=== PATIENT | male | born 1955 | race Caucasian/White ===

== ENCOUNTER → 2016-08-19 | Outpatient (CLI) | payer OTHER ==
[~2016-08-19] MED LIST: COZAAR 25 MG TA25 MG PO; DOXYCYCLINE 10100 MG PO; LEVOTHYROXINE 0.15MG PO
== END ==
LOC: CAT 08-12 07:04
DX: J32.4 Chronic pansinusitis (principal)

== ENCOUNTER 2017-09-04 10:49 | Emergency (ER) | payer OTHER ==
[~2017-09-04] VITALS: Ht 167.6 cm; Wt 61.2 kg
[~2017-09-04 10:49] MED LIST changes: +COZAAR 50 MG TA50 M2 PO; +DOXYCYCLINE MO100 MG PO; +LEVOTHYROXINE0.05 MG PO; +TRAMADOL 50 MG50 MG PO
[2017-09-04 10:58] VITALS: BP 168/83
[2017-09-04] MEDS ORDERED: NORCO 5-325 TA1 EACH PO (11:07)
[2018-03-21] MEDS ORDERED: IBUPROFEN 200200 M1 PO (14:58)
[2018-03-21] MEDS ORDERED: LOSARTAN-HCTZ1 EAC1 PO (14:59)
[2018-03-21] MEDS ORDERED: HYDROCODON-ACE1 EAC7 PO (15:23)
[2018-03-21] MEDS ORDERED: NABUMETONE 500500 M1 PO (15:23)
[2018-03-24] MEDS ORDERED: MEDROLDOSEPACK PO (09:09)
[2018-04-14] MEDS ORDERED: COZAAR100 MG PO (13:38)
== END 2017-09-04 12:20 | disposition home or self-care (01) ==
LOC: ER 10:49
DX: S29.012A Strain of muscle and tendon of back wall of thorax, initial encounter (principal); M94.0 Chondrocostal junction syndrome [Tietze]; E11.9 Type 2 diabetes mellitus without complications; I10 Essential (primary) hypertension; E03.9 Hypothyroidism, unspecified; X58.XXXA Exposure to other specified factors, initial encounter; Y93.89 Activity, other specified; Y92.89 Other specified places as the place of occurrence of the external cause; Y99.8 Other external cause status

== ENCOUNTER → 2018-01-02 | Outpatient (CLI) | payer OTHER ==
[~2018-01-02] MED LIST changes: +NORCO 5-325 TA1 EACH PO
== END ==
LOC: RAD 13:58
DX: M25.551 Pain in right hip (principal); I70.8 Atherosclerosis of other arteries

== ENCOUNTER → 2018-01-05 | Outpatient (CLI) | payer OTHER | LOC: RAD 13:45 | DX: M48.061 Spinal stenosis, lumbar region without neurogenic claudication (principal); M41.85 Other forms of scoliosis, thoracolumbar region; M54.16 Radiculopathy, lumbar region ==

== ENCOUNTER 2018-02-05 13:54 | Emergency (ER) | payer OTHER ==
[~2018-02-05] VITALS: Ht 167.6 cm; Wt 59.9 kg
[2018-02-05] MEDS ORDERED: NORCO 5-325 TA1 EACH PO (15:03)
[2018-02-05] MEDS ORDERED: MOBIC7.5 MG PO (15:03)
== END 2018-02-05 15:23 | disposition home or self-care (01) ==
LOC: ER 13:54
DX: M70.972 Unspecified soft tissue disorder related to use, overuse and pressure, left ankle and foot (principal); M81.0 Age-related osteoporosis without current pathological fracture; I10 Essential (primary) hypertension; E11.9 Type 2 diabetes mellitus without complications; E03.9 Hypothyroidism, unspecified; Y93.89 Activity, other specified

== ENCOUNTER → 2018-03-02 | Outpatient (CLI) | payer OTHER ==
[~2018-03-02] MED LIST changes: +MOBIC7.5 MG PO
== END ==
LOC: MRI 07:18
DX: M47.26 Other spondylosis with radiculopathy, lumbar region (principal)

== ENCOUNTER 2018-04-26 18:24 | Emergency (ER) | payer OTHER ==
[~2018-04-26] VITALS: Ht 167.6 cm; Wt 59.9 kg
[~2018-04-26 18:24] MED LIST changes: +COZAAR100 MG PO; +HYDROCODON-ACE1 EAC7 PO; +IBUPROFEN 200200 M1 PO; +LOSARTAN-HCTZ1 EAC1 PO; +MEDROLDOSEPACK PO; +NABUMETONE 500500 M1 PO
== END 2018-04-26 19:24 | disposition home or self-care (01) ==
LOC: ER 18:24
DX: M17.0 Bilateral primary osteoarthritis of knee (principal); I10 Essential (primary) hypertension; E11.9 Type 2 diabetes mellitus without complications

== ENCOUNTER → 2018-05-16 | Outpatient (CLI) | payer OTHER | LOC: CAT 07:35 | PROVIDERS: Nurse Practitioner | DX: I26.99 Other pulmonary embolism without acute cor pulmonale (principal); I82.4Z3 Acute embolism and thrombosis of unspecified deep veins of distal lower extremity, bilateral; E11.9 Type 2 diabetes mellitus without complications; I10 Essential (primary) hypertension; E03.9 Hypothyroidism, unspecified ==